=== PATIENT | male | born 1965 | race Caucasian/White ===

== ENCOUNTER 2018-03-28 11:04 | Emergency (ER) | payer BC, MEDICAID ==
[~2018-03-28] VITALS: Ht 175.3 cm; Wt 66.0 kg
[~2018-03-28 11:04] MED LIST: CLON-365 PO; QUET300T5 PO
[2018-03-28] MEDS ORDERED: SODIUM CHLORIDE 0.9% 1,000 ML IV ONE (11:21)
[2018-03-28] MEDS ORDERED: SODIUM CHLORIDE 0.9% 1,000ML IVBOLUS ONE (11:30)
[2018-03-28] MEDS ORDERED: SODIUM CHLORIDE FLUSH 10ML SYR IVF ONE (11:30)
[2018-03-28] MEDS ORDERED: THIAMINE 100 MG in SODIUM CHLORIDE 0.9% 50 ML IVPB ONE (11:30)
[2018-03-28 11:47] LABS: BASOPHILS # (AUTO) 0.04 x10^3/uL (0-0.1); BASOPHILS % (AUTO) 0 % (0-1); EOSINOPHILS # (AUTO) 0.07 x10^3/uL (0-0.4); EOSINOPHILS % (AUTO) 0 % (1-7); LYMPHOCYTES # (AUTO) 1.61 x10^3/uL (1-3.4); LYMPHOCYTES % (AUTO) 10 % (22-44); MD NO; MEAN CORPUSCULAR HEMOGLOBIN 31.7 pg (27.5-34.5); MEAN CORPUSCULAR HGB CONC 35.2 g/dL (33.2-36.2); MEAN CORPUSCULAR VOLUME 90.1 fL (81-97); MEAN PLATELET VOLUME 7.4 fL (7.4-10.4); MONOCYTES # (AUTO) 0.91 x10^3/uL (0.2-0.8); MONOCYTES % (AUTO) 5 % (2-9); NEUTROPHILS # (AUTO) 14.29 x10^3/uL (1.8-6.8); NEUTROPHILS % (AUTO) 85 % (42-75); PLATELET COUNT 354 x10^3/uL (130-400); RED BLOOD COUNT 4.81 x10^6/uL (4.38-5.82); RED CELL DISTRIBUTION WIDTH 13.1 % (9.4-14.8)
[2018-03-28 11:51] LABS: MICROSCOPIC NOT IND
[2018-03-28] MEDS ORDERED: CLON-364 PO (11:53)
[2018-03-28 11:54] LABS: CULTURE INDICATED? NO
[2018-03-28 11:55] LABS: INTERNATIONAL NORMALIZED RATIO 0.96 (0.93-1.1)
[2018-03-28 12:01] LABS: ALBUMIN 4.1 g/dL (3.4-5.0); ANION GAP 14 mmol/L (5-15); CALCIUM 9.2 mg/dL (8.5-10.1); CHLORIDE 106 mmol/L (98-107)
[2018-03-28 12:04] LABS: ALANINE AMINOTRANSFERASE 45 U/L (12-78); ALKALINE PHOSPHATASE 79 U/L (45-117); BILIRUBIN,TOTAL 0.7 mg/dL (0.2-1.0); CREATININE 0.92 mg/dL (0.7-1.3); TOTAL PROTEIN 7.8 g/dL (6.4-8.2)
[2018-03-28] MEDS ORDERED: MORPHINE SULFATE 4 MG/ML, 1ML ONE (13:10)
[2018-03-28] MEDS ORDERED: CEFTRIAXONE PMX 1GM/50ML 50 ML ONE (13:10)
[2018-03-28 13:19] VITALS: BP 119/76
[2018-03-28] MEDS ORDERED: ONDANSETRON ODT 4 MG PO ONE (13:30)
[2018-03-28] MEDS ORDERED: CEFTRIAXONE PMX 1GM/50ML 50 ML IVPB ONE (13:30)
[2018-03-28] MEDS ORDERED: MORPHINE SULFATE 4 MG/ML, 1ML IVPush PRN (13:30)
== END 2018-03-28 14:10 | disposition home or self-care (01) ==
LOC: ED 14:03
DX: J15.9 Unspecified bacterial pneumonia (principal); R10.30 Lower abdominal pain, unspecified; F17.200 Nicotine dependence, unspecified, uncomplicated
CPT/HCPCS: 36415; 74177; 80053; 81003; 83605; 83690; 85025; 85610; 85730; 96365; 96367; 96375; 99285; J0696; J3411; J7030

== ENCOUNTER 2018-10-13 22:14 | Inpatient (IN) | payer BC, MEDICAID ==
[~2018-10-13] VITALS: Ht 175.3 cm; Wt 77.0 kg
[~2018-10-13 22:14] MED LIST changes: -CLON-365 PO; +CLON0.5T11 PO; +CLON1TAB11 PO
[2018-10-13] MEDS ORDERED: HYDR-3653 PO (22:32)
[2018-10-13] MEDS ORDERED: CYCL5TAB PO (22:33)
[2018-10-13 22:58] LABS: BASOPHILS # (AUTO) 0.04 x10^3/uL (0-0.1); BASOPHILS % (AUTO) 1 % (0-1); EOSINOPHILS # (AUTO) 0.22 x10^3/uL (0-0.4); EOSINOPHILS % (AUTO) 2 % (1-7); LYMPHOCYTES # (AUTO) 1.74 x10^3/uL (1-3.4); LYMPHOCYTES % (AUTO) 19 % (22-44); MD NO; MEAN CORPUSCULAR HGB CONC 35.2 g/dL (33.2-36.2); MEAN CORPUSCULAR VOLUME 90.9 fL (81-97); MEAN PLATELET VOLUME 7.2 fL (7.4-10.4); MONOCYTES # (AUTO) 0.84 x10^3/uL (0.2-0.8); MONOCYTES % (AUTO) 9 % (2-9); NEUTROPHILS # (AUTO) 6.41 x10^3/uL (1.8-6.8); NEUTROPHILS % (AUTO) 69 % (42-75); PLATELET COUNT 261 x10^3/uL (130-400); RED BLOOD COUNT 5.33 x10^6/uL (4.38-5.82)
[2018-10-13 23:05] LABS: AMPHETAMINE SCREEN, URINE Negative (Negative); BARBITURATE SCREEN, URINE Negative (Negative); BENZODIAZEPINE SCREEN, URINE Negative (Negative); CANNABINOID SCREEN, URINE Positive (Negative); COCAINE SCREEN, URINE Negative (Negative); METHADONE SCREEN, URINE Negative (Negative); OPIATE SCREEN, URINE Negative (Negative)
[2018-10-13 23:10] LABS: ALBUMIN 4.2 g/dL (3.4-5.0); ANION GAP 9 mmol/L (5-15); CALCIUM 8.9 mg/dL (8.5-10.1); CHLORIDE 104 mmol/L (98-107); SALICYLATE LEVEL 5.9 mg/dL (2.8-20.0)
[2018-10-13] MEDS ORDERED: MAALOX/HYOSCYAMINE/LIDOCAINE 45 ML BTL ONE (23:10)
[2018-10-13 23:19] LABS: ALANINE AMINOTRANSFERASE 2245 U/L (12-78); ALKALINE PHOSPHATASE 91 U/L (45-117); BILIRUBIN,TOTAL 0.9 mg/dL (0.2-1.0); CREATININE 1.04 mg/dL (0.7-1.3); TOTAL PROTEIN 7.3 g/dL (6.4-8.2)
[2018-10-13 23:20] LABS: ACETAMINOPHEN < 2 mcg/mL (10-30)
[2018-10-13] MEDS ORDERED: MAALOX/HYOSCYAMINE/LIDOCAINE 45 ML BTL PO ONE (23:30)
[2018-10-13 23:58] LABS: INTERNATIONAL NORMALIZED RATIO 1.38 (0.93-1.1); PROTHROMBIN TIME 14.4 Seconds (9.6-11.5)
[2018-10-14] MEDS ORDERED: SODIUM CHLORIDE FLUSH 10ML SYR IVF ONE
[2018-10-14 01:37] VITALS: BP 132/95
[2018-10-14] MEDS ORDERED: DIPHENHYDRAMINE 25 MG CAPSULE PO PRN (02:00)
[2018-10-14] MEDS ORDERED: LIDODERM 5% PATCH TD PRN (02:00)
[2018-10-14] MEDS ORDERED: hydrALAzine 20 MG/ML, 1ML IVPush PRN (02:00)
[2018-10-14] MEDS ORDERED: ONDANSETRON ODT 4 MG PO PRN (02:00)
[2018-10-14] MEDS: LORazepam 1MG TABLET PO PRN ×4 (02:15→22:00)
[2018-10-14 02:23] VITALS: BP 120/83
[2018-10-14] MEDS: KETOROLAC 30 MG/1 ML IV PRN ×2 (04:41→19:33)
[2018-10-14 07:00] VITALS: BP 124/85
[2018-10-14 11:07] LABS: BASOPHILS # (AUTO) 0.03 x10^3/uL (0-0.1); BASOPHILS % (AUTO) 0 % (0-1); EOSINOPHILS % (AUTO) 4 % (1-7); LYMPHOCYTES # (AUTO) 1.65 x10^3/uL (1-3.4); LYMPHOCYTES % (AUTO) 24 % (22-44); MD NO; MEAN CORPUSCULAR HEMOGLOBIN 32.1 pg (27.5-34.5); MEAN CORPUSCULAR HGB CONC 34.8 g/dL (33.2-36.2); MEAN CORPUSCULAR VOLUME 92.1 fL (81-97); MEAN PLATELET VOLUME 7.1 fL (7.4-10.4); MONOCYTES # (AUTO) 0.41 x10^3/uL (0.2-0.8); MONOCYTES % (AUTO) 6 % (2-9); NEUTROPHILS # (AUTO) 4.65 x10^3/uL (1.8-6.8); NEUTROPHILS % (AUTO) 66 % (42-75); PLATELET COUNT 229 x10^3/uL (130-400); RED BLOOD COUNT 5.02 x10^6/uL (4.38-5.82); RED CELL DISTRIBUTION WIDTH 12.7 % (9.4-14.8)
[2018-10-14 11:16] LABS: ANION GAP 9 mmol/L (5-15); CALCIUM 8.1 mg/dL (8.5-10.1); CHLORIDE 103 mmol/L (98-107); CREATININE 1.06 mg/dL (0.7-1.3)
[2018-10-14 14:00] VITALS: BP 130/84
[2018-10-14 20:49] VITALS: BP 120/90
[2018-10-15] MEDS: LORazepam 1MG TABLET PO PRN ×6 (01:06→23:50)
[2018-10-15 01:16] VITALS: BP 120/86
[2018-10-15] MEDS: KETOROLAC 30 MG/1 ML IV PRN ×3 (04:44→23:46)
[2018-10-15 05:20] LABS: ALBUMIN 3.7 g/dL (3.4-5.0); ANION GAP 6 mmol/L (5-15); CHLORIDE 105 mmol/L (98-107); CREATININE 1.03 mg/dL (0.7-1.3)
[2018-10-15 05:22] LABS: BILIRUBIN,TOTAL 1.1 mg/dL (0.2-1.0)
[2018-10-15 05:43] LABS: ALANINE AMINOTRANSFERASE 2927 U/L (12-78); ALKALINE PHOSPHATASE 80 U/L (45-117); TOTAL PROTEIN 6.6 g/dL (6.4-8.2)
[2018-10-15 08:05] VITALS: BP 151/95
[2018-10-15] MEDS: NICOTINE 14MG/24 HR PATCH.TD24 TD SCH ×2 (11:52→16:46)
[2018-10-15 12:19] VITALS: BP 134/84
[2018-10-15] MEDS: CALCIUM CARBONATE 500 MG TAB.CHEW PO PRN ×3 (16:02→23:46)
[2018-10-15] MEDS: OMEPRAZOLE 20 MG CAPSULE.DR PO SCH (16:49)
[2018-10-15 20:34] VITALS: BP 120/83
[2018-10-16 03:05] VITALS: BP 145/99
[2018-10-16] MEDS: LORazepam 1MG TABLET PO PRN ×3 (04:05→18:17)
[2018-10-16] MEDS: KETOROLAC 30 MG/1 ML IV PRN (06:08)
[2018-10-16 07:05] VITALS: BP 143/96
[2018-10-16] MEDS: OMEPRAZOLE 20 MG CAPSULE.DR PO SCH ×2 (08:15→17:21)
[2018-10-16 08:21] LABS: ALBUMIN 3.7 g/dL (3.4-5.0); ANION GAP 6 mmol/L (5-15); CALCIUM 8.7 mg/dL (8.5-10.1); CHLORIDE 106 mmol/L (98-107); CREATININE 0.89 mg/dL (0.7-1.3)
[2018-10-16 08:30] LABS: ALANINE AMINOTRANSFERASE 1722 U/L (12-78); ALKALINE PHOSPHATASE 82 U/L (45-117); BILIRUBIN,TOTAL 1.3 mg/dL (0.2-1.0); TOTAL PROTEIN 6.5 g/dL (6.4-8.2)
[2018-10-16 12:50] VITALS: BP 144/99
[2018-10-16] MEDS: NICOTINE 14MG/24 HR PATCH.TD24 TD SCH (17:21)
== END 2018-10-16 18:15 | disposition left against medical advice (07) | DRG 433 ==
LOC: ED 22:44 → EDIP 23:50 → 4NOR 10-14 00:33
PROVIDERS: ADMIT Internal Medicine; ATTEND Internal Medicine
DX: K70.10 Alcoholic hepatitis without ascites (principal); R45.851 Suicidal ideations; F10.239 Alcohol dependence with withdrawal, unspecified; F10.220 Alcohol dependence with intoxication, uncomplicated; F17.210 Nicotine dependence, cigarettes, uncomplicated; K58.9 Irritable bowel syndrome, unspecified; F41.9 Anxiety disorder, unspecified; Z80.0 Family history of malignant neoplasm of digestive organs; Z87.01 Personal history of pneumonia (recurrent)
CPT/HCPCS: 36415; 76700; 80048; 80053; 80307; 80329; 82140; 83690; 85025; 85610; 85730; 99285; G0378; J1885; G0480; Q0163